=== PATIENT | female | born 1930 | race Caucasian/White ===

== ENCOUNTER 2016-11-22 12:42 | Emergency (ER) | payer MEDICARE, OTHER ==
--- NOTE | 2016-11-22 13:55 | XRAY Preliminary Report ---
Exam: XR Lumbar Spine 2 View IMPRESSION: Extensive postoperative and other chronic findings. No definite acute disease. [facility] SITE ID: [id number]
--- NOTE | 2016-11-22 13:58 | XRAY Report ---
EXAM: LUMBOSACRAL SPINE RADIOGRAPHY EXAM DATE: 11/22/2016 01:37 PM. CLINICAL HISTORY: 1 week post fall, pain with ambulation. COMPARISONS: 12/06/2015. TECHNIQUE: 2 views. FINDINGS: Alignment: Normal. No spondylolisthesis or scoliosis. Bones: 5 lumbar vertebrae. Anterior compression fractures of T11 and T12 similar to previous exam. Sl ight anterior narrowing of T7 not included on previous study. No definite acute fracture or other bon e lesion. Pedicle screws and rods in L1, L2, L3, L4, and L5, with associated postoperative changes. O ld internal fixation of right hip. Old pelvic fracture. Disks: Generalized disk space narrowing with marginal lipping. Facets: Generalized degenerative changes. Sacroiliac Joints: Unremarkable. Soft Tissues: Unremarkable. IMPRESSION: Extensive postoperative and other chronic findings. No definite acute disease. [facility] Referring Provider Line: [phone] SITE ID: [id number]
--- NOTE | 2016-11-22 14:36 | ED Physician Documentation ---
PD HPI BACK INJURY - Stated complaint Stated Complaint: BACK INJURY - History obtained from History obtained from: Patient, Family - History of Present Illness Location: Lower Type of injury: Fall Where injury occurred: Home Timing - onset: How many weeks ago (2) Timing - duration: Weeks (2) Timing - details: Gradual onset Pain level max: 7 Pain level now: 3 Quality: Pain, Spasm, Similar to prior episodes Improved by: Rest Worsened by: Moving, Other (walking) Associated symptoms: No: Fever, Weakness, Numbness, Incontinent of urine, Unable to urinate, Hematuria, Incontinent of stool Contributing factors: Prior back surgery Similar symptoms before: Diagnosis (chronic back pain) Recently seen: Not recently seen - Additional information Additional information: states felt like she was going to fall a few weeks ago, sat down on the ground and has developed low back pain over the past few weeks. Currently taking hydrocone 1 tab TID for chronic back pain. Review of Systems Constitutional: denies: Fever Throat: denies: Sore throat Cardiac: denies: Chest pain / pressure, Palpitations Respiratory: denies: Dyspnea, Cough, Hemoptysis, Wheezing GI: denies: Abdominal Pain, Nausea, Vomiting, Diarrhea Skin: denies: Rash Musculoskeletal: denies: Neck pain Neurologic: denies: Focal weakness, Numbness, Headache PD PAST MEDICAL HISTORY - Past Medical History Past Medical History: Yes Cardiovascular: Hypertension Respiratory: None Neuro: None Endocrine/Autoimmune: None GI: None CYLINDER INSPECTOR: None : None HEENT: None Psych: None Musculoskeletal: Chronic back pain Derm: Other - Past Surgical History Past Surgical History: Yes General: Cholecystectomy, Appendectomy Ortho: Knee replacement, Shoulder arthroplasty /CYLINDER INSPECTOR: section - Present Medications Home Medications: Ambulatory Orders Medication Instructions Recorded Confirmed Aspirin [Aspir-Low] 81 mg PO DAILY 12/06/15 12/07/15 Atorvastatin Calcium 10 mg PO QPM 12/06/15 12/06/15 Calcium Carbonate/Vitamin D3 1 tab PO DAILY 12/06/15 12/06/15 [Calcium 500 + Vit D Caplet] Fluocinolone/Shower Cap 1 oz TOP DAILY 12/06/15 12/06/15 [Fluocinolone 0.01% Scalp Oil] Hydrocodone/Acetaminophen 1 tab PO TID PRN 12/06/15 12/06/15 [Hydrocodon-Acetaminophn 10-325] Ketoconazole 1 applic TOP .TIW 12/06/15 12/07/15 Senna [Senokot] 1 tab PO DAILY 12/06/15 12/06/15 Acetaminophen [Tylenol] 650 mg PO Q4HR tablet 12/08/15 Diltiazem HCl [Diltiazem 24Hr ER] 240 mg PO DAILY #30 capsule.er 12/08/15 Famotidine [Pepcid] 20 mg PO DAILY #30 tablet 12/08/15 Lidocaine Patch 5% [Lidoderm Patch] 1 patch TOP DAILY PRN #30 patch 12/08/15 Hydrocodone/Acetaminophen 1 - 2 each PO Q6H PRN #20 tablet 11/22/16 [Hydrocodon-Acetaminophen 5-325] - Allergies Allergies/Adverse Reactions: Allergies Allergy/AdvReac Type Severity Reaction Status Date / Time No Known Drug Allergies Allergy Verified 11/22/16 14:00 - Social History Does the pt smoke?: No Smoking Status: Former smoker Does the pt drink ETOH?: No Does the pt have substance abuse?: No - Immunizations Immunizations are current?: No Immunizations: TDAP >10years/unknown PD ED PE NORMAL - Vitals Vital signs reviewed: Yes - General General: Alert and oriented X 3, No acute distress - HEENT HEENT: Atraumatic, PERRL, Moist mucous membranes - Neck Neck: Supple, no meningeal sign, No bony TTP - Cardiac Cardiac: RRR, Strong equal pulses - Respiratory Respiratory: No respiratory distress, Clear bilaterally - Abdomen Abdomen: Soft, Non tender - Back Back: No spinal TTP, Other (R>L paraspinal tenderness.) - Derm Derm: Warm and dry - Neuro Neuro: Alert and oriented X 3 - Psych Psych: Normal mood, Normal affect Results - Vitals Vitals: Vital Signs - 24 hr 11/22/16 11/22/16 12:52 14:58 Temperature 36.7 C 36.9 C Heart Rate 84 71 Respiratory 14 18 Rate Blood Pressure 170/70 H 160/61 H O2 Saturation 97 Oxygen O2 Source [] Room air O2 Source Room air - Rads (name of study) L spine xray Radiology: Prelim report reviewed, EMP read contemporaneously, See rad report ( Extensive postoperative and other chronic findings. No definite acute disease. ) PD MEDICAL DECISION MAKING - ED course Complexity details: reviewed old records, reviewed results, re-evaluated patient , considered differential (no cauda equina, no spinal epidural abscess, no fracture, no aortic dissection or evidence of aneursym rupture), d/w patient, d/ w family (Grandson) ED course: Patient is an 85-year-old female who presents to the emergency department with acute on chronic back pain. States that her normal Vicodin, 1 tab 3 times daily is not helping her pain. She has no pain when sitting, only when ambulating. As we know that she tolerates the Vicodin well, will increases from 1 tab to 2 tabs and not add a muscle relaxant due to concerns for balance and mentation changes. She is very well-appearing, nontoxic. No new neurological deficits. No acute findings on x-ray. Patient counseled regarding signs and symptoms for which I believe and urgent re-evaluation would be necessary. Patient with good understanding of and agreement to plan and is comfortable going home at this time This document was made in part using voice recognition software. While efforts are made to proofread this document, sound alike and grammatical errors may occur. Departure - Departure Disposition: 01 Home, Self Care Clinical Impression: Lumbar strain Qualifiers: Encounter type: initial encounter Qualified Code(s): S39.012A - Strain of muscle, fascia and tendon of lower back, initial encounter Condition: Good Instructions: ED Sprain Strain Lumbar Follow-Up: Shaye Gongora DO [Primary Care Provider] - Within 1 week Prescriptions: Hydrocodone/Acetaminophen [Hydrocodon-Acetaminophen 5-325] 1 - 2 each PO Q6H PRN #20 tablet PRN Reason: pain Comments: Return if you worsen. This should improve over the next week or so. Do not drink alcohol or drive while on narcotic pain medicine. Note that many narcotic pain relievers also contain tylenol/acetaminophen. Please ensure that your total dose of acetaminophen from all sources does not exceed 3 grams (3000mg) per day. You may constipated on this medication, take a stool softener such as "Colace" twice a day while you are on it. Also recommend a fjzc-enw-hvqvnuc laxative such as senna or MiraLAX any day that you do not have a bowel movement. If you received narcotic pain medication in the emergency department, do not drive or operate machinery for the next 24 hours. Discharge Date/Time: 11/22/16 15:15
[2016-11-22] MEDS ORDERED: HYDROcod/ACETAM 5/325 MG TABLET PO STA (14:54)
[2016-11-22 14:58] VITALS: BP 160/61
[2016-11-22] MEDS ORDERED: HYDROcod/ACETAM 5/325 MG TABLET ONE (14:58)
== END 2016-11-22 15:15 | disposition home or self-care (01) ==
LOC: ED 12:42
DX: S39.012A Strain of muscle, fascia and tendon of lower back, initial encounter (principal); W01.0XXA Fall on same level from slipping, tripping and stumbling without subsequent striking against object, initial encounter; Y92.019 Unspecified place in single-family (private) house as the place of occurrence of the external cause; I10 Essential (primary) hypertension; Z79.82 Long term (current) use of aspirin; Z87.891 Personal history of nicotine dependence
CPT/HCPCS: 72100; 99283; A9270

== ENCOUNTER 2017-01-12 12:48 | Outpatient (CLI) | payer MEDICARE, OTHER ==
--- NOTE | 2017-01-12 17:26 | CT Report ---
EXAM: CT LUMBAR SPINE WITHOUT CONTRAST EXAM DATE: 01/12/2017 01:08 p.m. CLINICAL HISTORY: Low back pain acute status post fall. COMPARISONS: Lumbar spine plain films 11/22/2016, 12/06/2015. TECHNIQUE: Thin-section axial images were acquired of the lumbar spine from T12 to S1 without contras t. Post-processing: Coronal and sagittal reformats. Other: None. In accordance with CT protocol optimization, one or more of the following dose reduction techniques w ere utilized for this exam: automated exposure control, adjustment of mA and/or KV based on patient s ize, or use of iterative reconstructive technique. FINDINGS: Postoperative: Extensive postoperative change from L1 through is once again evident. Diffuse posteri or laminectomy and facetectomy is seen. Posterolateral fusion is seen. Transpedicular screws are seen bilaterally from L1 through L3 and on the right at L4 and L5. Posterolateral osseous fusion is seen extending to S1. Anterior intervertebral fusion plugs are seen at L1-L2, L2-L3, L3-L4, and L4-L5. Alignment: Mild dextroscoliosis is seen centered in the upper lumbar spine. No significant spondyloli sthesis. Bones: Diffuse osteopenia is present. There are old moderate compression fractures involving the T12 and T11 vertebral bodies. Compression deformity measures 50-70%. At the T12 level there is patchy sclerosis of the vertebral body subcortic al lucency and cystic change at the superior endplate. No surrounding paraspinous edema is appreciate d. This is likely unchanged compared to prior plain films. No definite acute fracture is seen. Disk Levels/Facets: T11-T12, T12-L1: Vacuum cleft phenomenon. No stenosis. L1-L2 through L5-S1: Extensive postoperative change. No stenosis evident. Musculature: Fatty atrophy of posterior paraspinous musculature is seen in the lower lumbar and sacra l spine. Other: Moderate to marked vascular calcifications are seen involving the visualized aorta and iliac a rteries. IMPRESSION: 1. Diffuse osteopenia. No definite acute fracture. 2. Moderate compression fractures of the T12 and T11 vertebral bodies. Cortical irregularity is seen involving T12 superior endplate, however this likely is unchanged from prior plain films. No definite acute fracture. These are consistent with old fractures. 3. Extensive postoperative change from L1 through S1. No stenosis. [facility] Referring Provider Line: [phone] SITE ID: [id number]
== END 2017-01-12 12:49 | disposition home or self-care (01) ==
LOC: DI 12:48
PROVIDERS: ATTEND Family Medicine
DX: M54.5 Low back pain (principal); M85.88 Other specified disorders of bone density and structure, other site; S22.080A Wedge compression fracture of T11-T12 vertebra, initial encounter for closed fracture
CPT/HCPCS: 72131

== ENCOUNTER 2017-06-29 11:49 | Outpatient (CLI) | payer MEDICARE, OTHER ==
--- NOTE | 2017-06-29 17:21 | XRAY Report ---
FOUR VIEW RIGHT KNEE: 06/29/2017 CLINICAL INDICATION: Osteoarthritis. COMPARISON: 12/06/2015 FINDINGS: AP, lateral, bilateral oblique views of the right knee demonstrate a total knee replacement in place. There is no evidence of fracture or hardware complication. No effusion is seen. IMPRESSION: STABLE APPEARANCE OF RIGHT KNEE REPLACEMENT. NO EVIDENCE OF FRACTURE OR HARDWARE COMPLICATION. TD: 06/29/2017 17:20
--- NOTE | 2017-06-29 17:24 | XRAY Report ---
RIGHT HIP AND PELVIS: 06/29/2017 CLINICAL INDICATION: Osteoarthritis. FINDINGS: Frontal view of the hips and pelvis and frogleg lateral view of the right hip demonstrate dynamic compression screw and short side plate fixation of a previous right hip fracture. There is no evidence of acute fracture. Mild osteoarthritis is present. Old, healed pubic rami fractures are incidentally noted. IMPRESSION: ORIF OF RIGHT HIP FRACTURE. NO EVIDENCE OF ACUTE FRACTURE OR HARDWARE COMPLICATION. TD: 06/29/2017 17:24
--- NOTE | 2017-06-29 17:28 | XRAY Report ---
TWO VIEW LUMBAR SPINE: 06/29/2017 CLINICAL INDICATION: Pain. FINDINGS: Frontal and lateral views of the lumbar spine demonstrate previous multilevel discectomies, with posterior brenda and pedicle screw fusion spanning L1 through L5 on the right at L1 through L3 on the left. There is a chronic appearing T12 compression fracture, with approximately 50% height loss, and a chronic appearing T11 compression fracture with approximately 20% height loss, unchanged from CT of 01/12/2017. The bowel gas pattern appears normal. Vascular calcifications are seen. IMPRESSION: LUMBAR SPINAL FUSION AND CHRONIC COMPRESSION FRACTURES IN THE LOWER THORACIC SPINE, STABLE FROM 01/12/2017. TD: 06/29/2017 17:26
== END 2017-06-29 11:50 | disposition home or self-care (01) ==
LOC: DI.N 11:49
PROVIDERS: ATTEND Internal Medicine
DX: M16.11 Unilateral primary osteoarthritis, right hip (principal); Z96.651 Presence of right artificial knee joint; M48.54XD Collapsed vertebra, not elsewhere classified, thoracic region, subsequent encounter for fracture with routine healing; Z98.1 Arthrodesis status
CPT/HCPCS: 72100

== ENCOUNTER 2017-07-13 13:57 | Outpatient (CLI) | payer MEDICARE, OTHER ==
--- NOTE | 2017-07-14 12:43 | Mammography Report ---
DIGITAL SCREENING MAMMOGRAM: 07/13/2017 CLINICAL INDICATION: An 86-year-old, for screening. TECHNIQUE: Routine CC and MLO projections were obtained of the breasts. Bilateral laterally exaggerated craniocaudal views. COMPARISON: The patient reports having had previous mammograms approximately 20 years ago. As such, this will serve as a new baseline. FINDINGS: Positioning is limited bilaterally. The breasts demonstrate scattered fibroglandular densities bilaterally. Coarse and punctate, typically benign calcifications are present. No suspicious masses, clustered microcalcifications, or regions of architectural distortion are identified. IMPRESSION: BENIGN FINDINGS. RECOMMENDATION: ROUTINE ANNUAL SCREENING UNLESS OTHERWISE CLINICALLY INDICATED. BIRADS CATEGORY 2-BENIGN FINDINGS. STANDARD QUALIFYING STATEMENTS: 1. This examination was reviewed with the aid of Computer-Aided Detection (CAD). 2. A negative or benign imaging report should not delay biopsy if clinically suspicious findings are present. Consider surgical consultation if warranted. More than 5% of cancers are not identified by imaging. 3. Dense breasts may obscure an underlying neoplasm. TD: 07/14/2017 12:41
== END 2017-07-13 13:58 | disposition home or self-care (01) ==
LOC: DI.N 13:57
PROVIDERS: ATTEND Internal Medicine
DX: Z12.31 Encounter for screening mammogram for malignant neoplasm of breast (principal)
CPT/HCPCS: 77067

== ENCOUNTER 2017-07-28 06:14 | Outpatient (CLI) | payer MEDICARE, OTHER | END 2017-07-28 06:15 | disposition critical access hospital (66) | LOC: EMS 06:14 | PROVIDERS: ATTEND Surgery | DX: M79.605 Pain in left leg (principal); M79.604 Pain in right leg; R10.30 Lower abdominal pain, unspecified | CPT/HCPCS: A0425; A0429 ==

== ENCOUNTER 2017-07-28 07:08 | Emergency (ER) | payer MEDICARE, OTHER ==
[2017-07-28] MEDS ORDERED: SODIUM CHLORIDE 0.9% 1,000 ML IV ONE ×2 (07:21→09:21)
--- NOTE | 2017-07-28 07:31 | ED Physician Documentation ---
History of Present Illness - Stated complaint Stated Complaint: CP - Chief complaint Chief Complaint: General - History obtained from History obtained from: Patient, EMS - History of Present Illness Timing: How many weeks ago (3) - Additonal information Additional information: 86-year-old female was getting up to get ready to get dressed to go to the doctor today when her legs gave out on her and she has a significant amount of pain in her legs. She states she has had pain in her legs for some time she has got been into see Dr. Adonis Lan and had some blood drawn. She is a poor historian and indicates she had a call about the lab results but does not know what. She indicates maybe something was wrong with her heart. She does know she is in [place]. She is a resident at [place] in the [facility] section. Review of Systems Constitutional: reports: Weight Loss (down to 100lb from 110 in the past month) . denies: Fever, Chills Ears: denies: Ear pain Nose: denies: Rhinorrhea / runny nose, Congestion Throat: denies: Sore throat Cardiac: reports: Calf pain. denies: Chest pain / pressure, Palpitations, Pedal edema Respiratory: reports: Dyspnea. denies: Cough GI: reports: Diarrhea. denies: Abdominal Pain, Nausea, Vomiting : reports: Frequency. denies: Dysuria Skin: denies: Rash Musculoskeletal: reports: Back pain, Extremity pain, Pain with weight bearing. denies: Neck pain, Extremity swelling Neurologic: reports: Generalized weakness. denies: Focal weakness, Numbness PD PAST MEDICAL HISTORY - Past Medical History Cardiovascular: Hypertension Respiratory: None Neuro: None Endocrine/Autoimmune: None GI: None ADDICTION MEDICINE PHYSICIAN: None : None HEENT: None Psych: None Musculoskeletal: Chronic back pain Derm: Other - Past Surgical History Past Surgical History: Yes General: Cholecystectomy, Appendectomy Ortho: Knee replacement, Shoulder arthroplasty /ADDICTION MEDICINE PHYSICIAN: section - Present Medications Home Medications: Ambulatory Orders Medication Instructions Recorded Confirmed Aspirin [Aspir-Low] 81 mg PO DAILY 12/06/15 12/07/15 Atorvastatin Calcium 10 mg PO QPM 12/06/15 12/06/15 Calcium Carbonate/Vitamin D3 1 tab PO DAILY 12/06/15 12/06/15 [Calcium 500 + Vit D Caplet] Hydrocodone/Acetaminophen 1 tab PO TID PRN 12/06/15 12/06/15 [Hydrocodone-Acetamin 10-325 mg] Senna [Senokot] 1 tab PO DAILY 12/06/15 12/06/15 Acetaminophen [Tylenol] 650 mg PO Q4HR tablet 12/08/15 Diltiazem HCl [Diltiazem 24Hr ER] 240 mg PO DAILY #30 capsule.er 12/08/15 - Allergies Allergies/Adverse Reactions: Allergies Allergy/AdvReac Type Severity Reaction Status Date / Time No Known Drug Allergies Allergy Verified 07/28/17 07:18 - Social History Does the pt smoke?: No Smoking Status: Former smoker Does the pt drink ETOH?: No Does the pt have substance abuse?: No - Immunizations Immunizations are current?: No Immunizations: TDAP >10years/unknown PD ED PE NORMAL - Vitals Vital signs reviewed: Yes (hypertensive marked) - General General: Well developed/nourished, Other (86 y/o female in tears without tears running appears to be in pain and is confused. ) - HEENT HEENT: Atraumatic, PERRL, EOMI, Other (dry mucous membranes ) - Neck Neck: Supple, no meningeal sign, No bony TTP - Cardiac Cardiac: RRR, Other (2/6 holosystolic murmer at LSB) - Respiratory Respiratory: No respiratory distress, Clear bilaterally - Abdomen Abdomen: Soft, Non tender - Back Back: No CVA TTP, No spinal TTP - Derm Derm: Normal color, Warm and dry, No rash - Extremities Extremities: No deformity, No edema, Other (The legs are not tender) - Neuro Neuro: No motor deficit, No sensory deficit, Normal speech Eye Opening: Spontaneous Motor: Obeys Commands Verbal: Oriented GCS Score: 15 - Psych Psych: Normal mood, Normal affect Results - Vitals Vitals: Vital Signs - 24 hr 07/28/17 07/28/17 07:09 09:58 Temperature 36.3 C L Heart Rate 81 79 Respiratory 24 19 Rate Blood Pressure 186/100 H 141/67 H O2 Saturation 100 97 Oxygen O2 Source [] Room air O2 Source Room air - EKG (time done) 0712 Rate: Rate (enter#) (79) Rhythm: NSR Ischemia: Q waves Other comments: Other comments (diffuse ST elevation of less than 1mV. ) Compare to prior EKG: Old EKG unavailable Computer interpretation: Agree with computer - Labs Labs: Laboratory Tests 07/28/17 07/28/17 07/28/17 07:40 07:40 07:40 WBC 12.0 H RBC 3.75 L Hgb 12.4 Hct 37.1 MCV 98.9 MCH 33.0 H MCHC 33.4 RDW 14.0 Plt Count 330 MPV 8.5 Neut # 8.2 H Lymph # 2.5 [place] # 1.1 H Eos # 0.1 Baso # 0.1 Absolute Nucleated RBC 0.00 Nucleated RBC % 0.0 Sodium 134 L Potassium 3.9 Chloride 103 Carbon Dioxide 19 L Anion Gap 12.0 BUN 15 Creatinine 0.8 Estimated GFR (MDRD) 68 L Glucose 99 Calcium 9.9 Total Bilirubin 0.6 AST 26 ALT 18 Alkaline Phosphatase 76 Troponin I < 0.04 B-Natriuretic Peptide Total Protein 8.3 H Albumin 3.9 Globulin 4.4 H Albumin/Globulin Ratio 0.9 L Lipase 36 Urine Color Urine Clarity Urine pH Ur Specific [place] Urine Protein Urine Glucose (UA) Urine Ketones Urine Occult Blood Urine Nitrite Urine Bilirubin Urine Urobilinogen Ur Leukocyte Esterase Ur Microscopic Review Urine Culture Comments 07/28/17 07/28/17 07:40 10:35 WBC RBC Hgb Hct MCV MCH MCHC RDW Plt Count MPV Neut # Lymph # [place] # Eos # Baso # Absolute Nucleated RBC Nucleated RBC % Sodium Potassium Chloride Carbon Dioxide Anion Gap BUN Creatinine Estimated GFR (MDRD) Glucose Calcium Total Bilirubin AST ALT Alkaline Phosphatase Troponin I B-Natriuretic Peptide 27 Total Protein Albumin Globulin Albumin/Globulin Ratio Lipase Urine Color YELLOW Urine Clarity CLEAR Urine pH 5.5 Ur Specific [place] <=1.005 Urine Protein NEGATIVE Urine Glucose (UA) NEGATIVE Urine Ketones NEGATIVE Urine Occult Blood NEGATIVE Urine Nitrite NEGATIVE Urine Bilirubin NEGATIVE Urine Urobilinogen 0.2 (NORMAL) Ur Leukocyte Esterase NEGATIVE Ur Microscopic Review NOT INDICATED Urine Culture Comments NOT INDICATED Procedures - IVC sono (time) 0715 Bedside IVC sono: IVC measures (cm) (0.72), IVC collapsed c insp (cm) (complete) , Significant dehydration (est 2 liter deficit) PD MEDICAL DECISION MAKING - ED course Complexity details: reviewed old records, reviewed results, re-evaluated patient , considered differential, d/w patient, d/w family ED course: 86-year-old female With a history of hypertension and chronic back pain has developed some weakness and collapse of her legs as well as pain in her legs and she is found to be significantly dehydrated and I suspect that her symptoms are all related to dehydration. Her workup was otherwise unremarkable. She is administered 2 L of normal saline here in the emergency department. Departure - Departure Disposition: 01 Home, Self Care Clinical Impression: Dehydration Condition: Stable Instructions: ED Dehydration Follow-Up: Adonis Lan MD [Provider Admit Priv/Credential] -
[2017-07-28 07:50] LABS: BASOPHILS # (AUTO) 0.1 10^3/uL (0.0-0.1); BASOPHILS % (AUTO) 0.8 %; EOSINOPHILS # (AUTO) 0.1 10^3/uL (0.0-0.7); EOSINOPHILS % (AUTO) 0.7 %; HGB - HEMOGLOBIN 12.4 g/dL (12.0-16.0); LYMPHOCYTES # (AUTO) 2.5 10^3/uL (1.5-3.5); LYMPHOCYTES % (AUTO) 21.2 %; MEAN CORPUSCULAR HGB CONC 33.4 g/dL (32.0-36.0); MEAN CORPUSCULAR VOLUME 98.9 fL (81.0-99.0); MEAN PLATELET VOLUME 8.5 fL (7.9-10.8); MONOCYTES # (AUTO) 1.1 10^3/uL (0.0-1.0); MONOCYTES % (AUTO) 8.8 %; NEUTROPHILS # (AUTO) 8.2 10^3/uL (1.5-6.6); NEUTROPHILS % (AUTO) 68.5 %; PLT - PLATELET COUNT 330 10^3/uL (130-450); RED BLOOD COUNT 3.75 10^6/uL (4.20-5.40)
[2017-07-28 08:03] LABS: ALBUMIN 3.9 g/dL (3.2-5.5); ALBUMIN/GLOBULIN RATIO 0.9 (1.0-2.2); BILIRUBIN,TOTAL 0.6 mg/dL (0.2-1.0); CALCIUM 9.9 mg/dL (8.5-10.3); CREATININE 0.8 mg/dL (0.4-1.0); TOTAL PROTEIN 8.3 g/dL (6.7-8.2)
[2017-07-28 10:56] LABS: BILIRUBIN,URINE NEGATIVE (NEGATIVE); GLUCOSE, URINE (UA) NEGATIVE (NEGATIVE); KETONES,URINE (UA) NEGATIVE (NEGATIVE); LEUKOCYTE ESTERASE, URINE NEGATIVE (NEGATIVE); NITRITE,URINE NEGATIVE (NEGATIVE); OCCULT BLOOD,URINE NEGATIVE (NEGATIVE); PH,URINE 5.5 PH (5.0-7.5); PROTEIN,URINE NEGATIVE (NEGATIVE); UROBILINOGEN,URINE 0.2 (NORMAL) E.U./dL (NORMAL)
[2017-07-28 10:57] LABS: CLARITY,URINE CLEAR (CLEAR)
[2017-07-28 11:13] VITALS: BP 153/69
== END 2017-07-28 12:04 | disposition home or self-care (01) ==
LOC: EDUNIT# → ED 07:08
DX: E86.0 Dehydration (principal); I10 Essential (primary) hypertension; Z79.82 Long term (current) use of aspirin; Z87.891 Personal history of nicotine dependence; Z79.899 Other long term (current) drug therapy; R06.00 Dyspnea, unspecified
CPT/HCPCS: 36415; 80053; 81001; 81003; 83690; 83880; 84484; 85025; 87086; 93005; 96360; 96361; 99284

== ENCOUNTER 2018-03-27 12:23 | Outpatient (CLI) | payer MEDICARE, OTHER ==
--- NOTE | 2018-03-30 13:37 | DEXA Report ---
Reason: UNILATERAL PRIMARY OSTEOARTHRITIS, RIGHT KNEE Procedure Date: 03/27/2018 Accession Number: [id number] / [id number] Procedure: DEX - Dexa Spine and/or Hip CPT Code: FULL RESULT: EXAM: Dexa Spine and/or Hip, Dexa Forearm DATE: 03/27/2018 1:35 PM CLINICAL HISTORY: UNILATERAL PRIMARY OSTEOARTHRITIS, RIGHT KNEE TECHNIQUE: Dual energy x-ray absorptiometry (DXA) was performed on a [email or web address] System. Regions measured are the AP Spine, femoral neck, and if needed forearm. COMPARISON: None. In accordance with the International Society for Clinical Densitometry (ISCD) guidelines, data from previous exams may be reanalyzed using current recommendations and techniques. This is done to allow a more accurate basis for comparison with the current study. FINDINGS: The data for the hip is as follows: BMD (g/cm/cm) T-SCORE Z-SCORE REGION Neck 0.699 -2.4 0.4 TOTAL 0.677 -2.6 0.1 NOTE: The femoral neck or total proximal femur, whichever is lowest, is used for classification. The data for the Left forearm is as follows: BMD (g/cm/cm) T-SCORE Z-SCORE REGION 1/3 0.490 -4.4 -1.0 NOTE: The 33% radius of the nondominant forearm is used for classification. * Denotes significant change at the 95% confidence level. Denotes dissimilar scan types or analysis methods. IMPRESSION: THE WHO CLASSIFICATION BASED ON THE INTERNATIONAL REFERENCE STANDARD IS OSTEOPOROSIS. THE FRACTURE RISK IS HIGH. RECOMMENDATION: Patients with diagnosis of osteoporosis or osteopenia should have regular bone mineral density assessment. For those eligible for Medicare, routine testing is allowed once every 2 years. Testing frequency can be increased for patients who have rapidly progressing disease or for those who are receiving medical therapy to restore bone mass. COMMENT: World Health Organization (WHO) definitions for osteoporosis and osteopenia: NORMAL BMD: T-score at -1.0 or higher, fracture risk is low OSTEOPENIA BMD: T-score between -1.0 and -2.5, fracture risk is increased. OSTEOPOROSIS BMD: T-score at -2.5 or lower, fracture risk is high. National Osteoporosis Foundation recommends: 1. Obtain adequate dietary calcium (at least 1200 mg per day) and vitamin D (400-800 international units per day). 2. Participate, as appropriate, in regular weightbearing and muscle-strengthening exercise. 3. Avoid tobacco use and reduce alcohol and caffeine intake. 4. For more detailed information see the website at www.NOF.org.
--- NOTE | 2018-03-30 13:37 | DEXA Report ---
Reason: DISORDER OF BONE Procedure Date: 03/27/2018 Accession Number: [id number] / [id number] Procedure: DEX - Dexa Forearm CPT Code: FULL RESULT: EXAM: Dexa Spine and/or Hip, Dexa Forearm DATE: 03/27/2018 1:35 PM CLINICAL HISTORY: UNILATERAL PRIMARY OSTEOARTHRITIS, RIGHT KNEE TECHNIQUE: Dual energy x-ray absorptiometry (DXA) was performed on a [employer] [place] System. Regions measured are the AP Spine, femoral neck, and if needed forearm. COMPARISON: None. In accordance with the International Society for Clinical Densitometry (ISCD) guidelines, data from previous exams may be reanalyzed using current recommendations and techniques. This is done to allow a more accurate basis for comparison with the current study. FINDINGS: The data for the hip is as follows: BMD (g/cm/cm) T-SCORE Z-SCORE REGION Neck 0.699 -2.4 0.4 TOTAL 0.677 -2.6 0.1 NOTE: The femoral neck or total proximal femur, whichever is lowest, is used for classification. The data for the Left forearm is as follows: BMD (g/cm/cm) T-SCORE Z-SCORE REGION 1/3 0.490 -4.4 -1.0 NOTE: The 33% radius of the nondominant forearm is used for classification. * Denotes significant change at the 95% confidence level. Denotes dissimilar scan types or analysis methods. IMPRESSION: THE WHO CLASSIFICATION BASED ON THE INTERNATIONAL REFERENCE STANDARD IS OSTEOPOROSIS. THE FRACTURE RISK IS HIGH. RECOMMENDATION: Patients with diagnosis of osteoporosis or osteopenia should have regular bone mineral density assessment. For those eligible for Medicare, routine testing is allowed once every 2 years. Testing frequency can be increased for patients who have rapidly progressing disease or for those who are receiving medical therapy to restore bone mass. COMMENT: World Health Organization (WHO) definitions for osteoporosis and osteopenia: NORMAL BMD: T-score at -1.0 or higher, fracture risk is low OSTEOPENIA BMD: T-score between -1.0 and -2.5, fracture risk is increased. OSTEOPOROSIS BMD: T-score at -2.5 or lower, fracture risk is high. National Osteoporosis Foundation recommends: 1. Obtain adequate dietary calcium (at least 1200 mg per day) and vitamin D (400-800 international units per day). 2. Participate, as appropriate, in regular weightbearing and muscle-strengthening exercise. 3. Avoid tobacco use and reduce alcohol and caffeine intake. 4. For more detailed information see the website at www.NOF.org.
== END 2018-03-27 12:24 | disposition home or self-care (01) ==
LOC: DI 12:23
PROVIDERS: ATTEND Internal Medicine
DX: M81.0 Age-related osteoporosis without current pathological fracture (principal)
CPT/HCPCS: 77080; 77081

== ENCOUNTER 2018-11-29 09:54 | Outpatient (CLI) | payer MEDICARE, OTHER ==
--- NOTE | 2018-11-30 08:08 | Mammography Report ---
Reason: SCREENING MAMMO Procedure Date: 11/29/2018 Accession Number: [id number] / [id number] Procedure: MGN - Screening Mammo Dig Bilat CPT Code: FULL RESULT: EXAM: Screening Mammo Dig Bilat DATE: 11/29/2018 10:21 AM CLINICAL HISTORY: Screening encounter. No reported risk factors. TECHNIQUE: (B) - Bilateral CC and MLO views were obtained. Examination is limited by the patient's ability to tolerate positioning, best possible images are obtained. COMPARISON: 07/13/2017. PARENCHYMAL PATTERN: (A) - The breast(s) demonstrate(s) scattered fibroglandular densities. FINDINGS: There are coarse typically benign calcifications. There are typically benign vascular calcifications. There are no suspicious masses, calcifications, or areas of distortion. IMPRESSION: Benign findings. BI-RADS category 2. RECOMMENDATION: (ANNUAL) - Recommend routine annual screening mammography. BI-RADS CATEGORY: (2) - Benign Findings. STANDARD QUALIFYING STATEMENTS: 1. This examination was not reviewed with the aid of Computer-Aided Detection (CAD). 2. A negative or benign imaging report should not preclude biopsy if clinically suspicious findings are present. 3. Dense breasts may obscure an underlying neoplasm. 4. This examination was reviewed without the aid of 3D breast imaging (tomosynthesis).
== END 2018-11-29 09:55 | disposition home or self-care (01) ==
LOC: DI.N 09:54
PROVIDERS: ATTEND Internal Medicine
DX: Z12.31 Encounter for screening mammogram for malignant neoplasm of breast (principal)
CPT/HCPCS: 77067